=== PATIENT | male | born 1985 | race Caucasian/White ===

== ENCOUNTER 2017-11-18 13:10 | Emergency (ER) | payer OTHER ==
[2017-11-18 13:16] VITALS: BP 126/66
--- NOTE | 2017-11-18 14:31 | RADIOLOGY REPORT (SQ) ---
EXAM DESCRIPTION: FINGER LEFT COMPLETED DATE/TIME: 11/18/2017 2:10 pm REASON FOR STUDY: pain swelling ring finger COMPARISON: None. NUMBER OF VIEWS: Three views. TECHNIQUE: AP, lateral, and oblique images acquired of the left 4th finger. LIMITATIONS: None. FINDINGS: MINERALIZATION: Normal. BONES: No acute fracture or dislocation. No worrisome bone lesions. SOFT TISSUES: Soft tissue swelling prominent at the left 4th PIP joint. OTHER: No other significant finding. IMPRESSION: SOFT TISSUE SWELLING. OTHERWISE, NORMAL LEFT 4TH FINGER. TECHNICAL DOCUMENTATION: JOB ID: [id number] [employer]- All Rights Reserved Reading location - IP/workstation name: [email or web address]
--- NOTE | 2017-11-18 14:31 | ER Document Report ---
ED Hand/Wrist Injury - General Chief Complaint: Finger Injury Stated Complaint: FINGER INJURY Time Seen by Provider: 11/18/17 13:58 Mode of Arrival: Ambulatory Information source: Patient Notes: 31-year-old male presents to ED for complaint of left hand ring finger pain. He states last night he had a night tear and dislocated his left ring finger and was able to put it back but is had swelling and bruising since then. He states he has a history of PTSD and sometimes had has night terrors. TRAVEL OUTSIDE OF THE [place] IN LAST 30 DAYS: No - HPI Injury to: Ring finger Onset: Yesterday Where: Home, Indoors Timing: Still present Quality of pain: Achy, Sharp Severity: Moderate Pain Level: 3 Context: Other - During a night terror last night he states he dislocated his finger - Related Data Allergies/Adverse Reactions: No Known Allergies Allergy (Verified 11/18/17 13:11) Past Medical History - General Information source: Patient - Social History Smoking Status: Never Smoker Cigarette use (# per day): No Chew tobacco use (# tins/day): No Smoking Education Provided: No Frequency of alcohol use: None Drug Abuse: None Family History: Reviewed & Not Pertinent Patient has suicidal ideation: No Patient has homicidal ideation: No - Past Medical History Cardiac Medical History: Reports: None Pulmonary Medical History: Reports: None EENT Medical History: Reports: None Neurological Medical History: Reports: None Endocrine Medical History: Reports: None Renal/ Medical History: Reports: None Malignancy Medical History: Reports None GI Medical History: Reports: None Musculoskeltal Medical History: Reports Hx Musculoskeletal Trauma Skin Medical History: Reports None Psychiatric Medical History: Reports: Hx Post Traumatic Stress Disorder Traumatic Medical History: Reports: Hx Fractures - Multiple digits and ankle Infectious Medical History: Reports: None Past Surgical History: Reports: None - Immunizations Immunizations up to date: Yes Hx Diphtheria, Pertussis, Tetanus Vaccination: Yes Review of Systems - Review of Systems Constitutional: No symptoms reported EENT: No symptoms reported Cardiovascular: No symptoms reported Respiratory: No symptoms reported Gastrointestinal: No symptoms reported Genitourinary: No symptoms reported Male Genitourinary: No symptoms reported Musculoskeletal: Other - Left ring finger pain swelling and bruising Skin: Change in color - Left ring finger Hematologic/Lymphatic: No symptoms reported Neurological/Psychological: No symptoms reported Physical Exam - Vital signs Vitals: Temp Pulse Resp BP Pulse Ox 97.5 F 66 16 126/66 H 96 11/18/17 13:15 11/18/17 13:15 11/18/17 13:15 11/18/17 13:15 11/18/17 13:15 Interpretation: Normal - General General appearance: Appears well, Alert - HEENT Head: Normocephalic, Atraumatic Eyes: Normal Pupils: PERRL - Respiratory Respiratory status: No respiratory distress Chest status: Nontender Breath sounds: Normal Chest palpation: Normal - Cardiovascular Rhythm: Regular Heart sounds: Normal auscultation Murmur: No - Abdominal Inspection: Normal Distension: No distension Bowel sounds: Normal Tenderness: Nontender Organomegaly: No organomegaly - Back Back: Normal, Nontender - Extremities General upper extremity: Normal temperature General lower extremity: Normal inspection, Nontender, Normal color, Normal ROM , Normal temperature, Normal weight bearing. No: Dominic's sign Hand: Tender, Ecchymosis, No evidence of human bite, No evidence of FB, Swelling. No: Abrasion, Deformity, Dislocation, Instability, Laceration, Nail injury, Tendon deficit, Other - Neurological Neuro grossly intact: Yes Cognition: Normal Orientation: AAOx4 Jerrell Coma Scale Eye Opening: Spontaneous Jerrell Coma Scale Verbal: Oriented [place] Coma Scale Motor: Obeys Commands Jerrell Coma Scale Total: 15 Speech: Normal Motor strength normal: LUE, RUE, LLE, RLE Sensory: Normal - Psychological Associated symptoms: Normal affect, Normal mood - Skin Skin Temperature: Warm Skin Moisture: Dry Skin Color: Ecchymosis Location of irregularity: Extremities - Left ring finger pain bruising and swelling Irregularity with: Swelling, Tenderness Course - Re-evaluation Re-evalutation: 11/18/17 16:53 X-ray demonstrated a contusion with swelling and bruising to the left ring finger. No acute akil fractures, deformities, or dislocations noted. - Vital Signs Vital signs: Temp Pulse Resp BP Pulse Ox 97.5 F 66 16 126/66 H 96 11/18/17 13:15 11/18/17 13:15 11/18/17 13:15 11/18/17 13:15 11/18/17 13:15 - Diagnostic Test Radiology reviewed: Image reviewed, Reports reviewed Procedures - Immobilization Left Finger 4th digit Time completed: 15:25 Immobilizer type: Finger splint (Static) Performed by: PCT Post-Proc Neuro Vasc Exam: Normal Alignment checked and good: Yes Discharge - Discharge Clinical Impression: Sprain of left ring finger Qualifiers: Encounter type: initial encounter Sprain of finger site: unspecified site Qualified Code(s): S63.615A - Unspecified sprain of left ring finger, initial encounter Condition: Stable Disposition: HOME, SELF-CARE Additional Instructions: SPRAIN: Your injury is a sprain. A sprain results from stretching or tearing of the ligaments, usually from a twisting injury. The ligaments will require time and protection in order to heal properly. Many sprains are quite disabling and should be taken seriously. The usual initial treatment of sprains is cold packs, elevation, and rest of the injured area. Your physician has assessed the seriousness of your ligament injury, and has outlined a treatment plan. Understand that this treatment may change, depending on how you progress. If a re-examination was recommended, it is important that you follow up as instructed. Call the doctor any time if there is severe pain, numbness, or loss of function in the injured area. SPLINT PRECAUTIONS: A splint has been placed. This will protect the area while healing begins. Your problem does NOT normally require a cast. It MUST, however, be held still! Keep the splint on ALL THE TIME until instructed to remove it by the doctor. As you begin to use the area, be careful. You shouldn't do anything which causes discomfort -- you may disturb the injury even with the splint in place. After the initial period of rest and elevation, if splint does not prevent pain when you move, come back. You may require placement of a different splint , or a cast. If there is unexpected severe pain, or numbness, discoloration, or swelling beyond the splint, you should return at once. If you feel that the splint has broken or become loose, come back. ICE & ELEVATION: Apply ice packs frequently against the painful area. Many different schedules are recommended, such as "20 minutes on, 20 minutes off" or "one hour ice, two hours rest." If you need to work, you may need to go longer between ice treatments. You should plan to have the area ice packed AT LEAST one- fourth of the time. The ice should be applied over the wrap, tape, or splint, or over a layer of cloth -- not directly against the skin. Some ice bags have a built-in cloth and can be put directly on the skin. Your injured part should be elevated as much as possible over the next 48 hours. Try to keep the injury above the level of the heart. Avoid use of the injured area. Elevation and rest will decrease the swelling. USE OF KSJR-MOZ-BOCPESI IBUPROFEN: Ibuprofen (Advil, Nuprin, Medipren, Motrin IB) is a medication for fever and pain control. In addition, it has anti- inflammatory effects which may be beneficial, especially in the treatment of injuries. It's best to take ibuprofen with food. Persons with ulcer disease or allergy to aspirin should notify their physician of this before taking ibuprofen. Ibuprofen can be given every four to six hours, for a total of four doses daily. Age Pain or fever dose Antiinflammatory dose 6-8 yr 200 mg (1 tab) 200 mg (1 tab) 9-11 yr 200 mg (1 tab) 200-400 mg (1-2 tab) 11-14 yr 200-400 mg (1-2 tab) 400 mg (2 tab) 15-adult 400 mg (2 tab) 600 mg (3 tab) FOLLOW-UP CARE: If you have been referred to a physician for follow-up care, call the physician s office for an appointment as you were instructed or within the next two days. If you experience worsening or a significant change in your symptoms, notify the physician immediately or return to the Emergency Department at any time for re-evaluation. Follow[facility] with your [facility] provider and if the pain continues follow-up with orthopedics. Elevation ice and ibuprofen your best treatment at this time. I have ordered a splint for the finger for comfort. There is no definite fractures noted on the x-ray. I have given you the written report of the x-ray at this time. Forms: Elevated Blood Pressure Referrals: LINUS SHARMA MD [Primary Care Provider] - Follow up as needed PATRICIA SARABIA MD [ACTIVE STAFF] - Follow up as needed
== END 2017-11-18 15:32 | disposition home or self-care (01) ==
LOC: ER 13:10
DX: S63.615A Unspecified sprain of left ring finger, initial encounter (principal); M79.645 Pain in left finger(s); X58.XXXA Exposure to other specified factors, initial encounter; F51.4 Sleep terrors [night terrors]; Z87.81 Personal history of (healed) traumatic fracture
CPT/HCPCS: 99283

== ENCOUNTER 2019-06-03 08:01 | Emergency (ER) | payer OTHER ==
--- NOTE | 2019-06-03 08:51 | RADIOLOGY REPORT (SQ) ---
EXAM DESCRIPTION: ELBOW LEFT OVER 2 VIEWS COMPLETED DATE/TIME: 06/03/2019 8:37 am REASON FOR STUDY: bone tenderness COMPARISON: None. NUMBER OF VIEWS: Four views. TECHNIQUE: AP, lateral, and both oblique radiographic images acquired of the left elbow. LIMITATIONS: ARTIFACT FROM AN IV IN THE ANTECUBITAL FOSSA LATERAL FILM SLIGHTLY ROTATED FINDINGS: MINERALIZATION: Normal. BONES: No acute fracture or dislocation. No worrisome bone lesions. JOINT: Small elbow joint effusion with elevation of the anterior fat pad. SOFT TISSUES: No soft tissue swelling. No foreign body. OTHER: No other significant finding. IMPRESSION: Small elbow joint effusion. No acute displaced fracture is identified. If there is continued pain, follow-up four view left elbow films are recommended in 7 to 10 days to e valuate for radiographically occult radial head fracture TECHNICAL DOCUMENTATION: JOB ID: [id number]- All Rights Reserved Reading location - IP/workstation name: [email or web address]
--- NOTE | 2019-06-03 08:53 | RADIOLOGY REPORT (SQ) ---
EXAM DESCRIPTION: HIP LEFT AP/LATERAL COMPLETED DATE/TIME: 06/03/2019 8:37 am REASON FOR STUDY: bone tenderness COMPARISON: None. NUMBER OF VIEWS: Two views. TECHNIQUE: AP pelvis and additional frog-leg view of the left hip. LIMITATIONS: None. FINDINGS: MINERALIZATION: Normal. LEFT HIP: No fracture or dislocation. No worrisome bone lesions. RIGHT HIP: No fracture or dislocation. No worrisome bone lesions. PUBIS AND ISCHIUM: No fracture. PELVIS: No fracture. SACRUM: No fracture or dislocation. No worrisome bone lesions. LOWER LUMBAR SPINE: No fracture or dislocation. No worrisome bone lesions. No significant disc disea se. SOFT TISSUES: No findings. OTHER: No other significant finding. IMPRESSION: NEGATIVE STUDY OF THE LEFT HIP AND PELVIS. NO RADIOGRAPHIC EVIDENCE OF ACUTE INJURY. TECHNICAL DOCUMENTATION: JOB ID: [id number] [employer]- All Rights Reserved Reading location - IP/workstation name: [email or web address]
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
[2019-06-03] MEDS ORDERED: CYCLOBENZAPRINE HCL 10 MG TABLET PO ONE (09:16)
[2019-06-03] MEDS ORDERED: KETOROLAC TROMETHAMINE INJ/PF 30 MG/1 ML SDV IV ONE (09:16)
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
[2019-06-03 10:06] VITALS: BP 123/76
== END 2019-06-03 10:04 | disposition home or self-care (01) ==
LOC: ER 08:01
DX: M25.522 Pain in left elbow (principal); M25.552 Pain in left hip; M25.562 Pain in left knee; M25.462 Effusion, left knee; V49.40XA Driver injured in collision with unspecified motor vehicles in traffic accident, initial encounter; F43.10 Post-traumatic stress disorder, unspecified; Z79.899 Other long term (current) drug therapy
CPT/HCPCS: 99283; 96374; 73080; 73502; 73564; J1885

== ENCOUNTER 2019-06-11 13:03 | Emergency (ER) | payer OTHER ==
[2019-06-11 13:16] VITALS: BP 143/87
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
--- NOTE | 2019-06-11 14:09 | RADIOLOGY REPORT (SQ) ---
EXAM DESCRIPTION: ELBOW LEFT OVER 2 VIEWS COMPLETED DATE/TIME: 06/11/2019 1:57 pm REASON FOR STUDY: Reassess for occult fracture COMPARISON: None. NUMBER OF VIEWS: Four views. TECHNIQUE: AP, lateral, and both oblique radiographic images acquired of the left elbow. LIMITATIONS: None. FINDINGS: MINERALIZATION: Normal. BONES: No acute fracture or dislocation. No worrisome bone lesions. JOINT: No effusion. SOFT TISSUES: No soft tissue swelling. No foreign body. OTHER: No other significant finding. IMPRESSION: NEGATIVE STUDY OF THE LEFT ELBOW. NO RADIOGRAPHIC EVIDENCE OF ACUTE INJURY. TECHNICAL DOCUMENTATION: JOB ID: [id number] [employer]- All Rights Reserved Reading location - IP/workstation name: [email or web address]
== END 2019-06-11 14:30 | disposition home or self-care (01) ==
LOC: ER 13:03
DX: F07.81 Postconcussional syndrome (principal); M25.522 Pain in left elbow; V89.2XXA Person injured in unspecified motor-vehicle accident, traffic, initial encounter
CPT/HCPCS: 99283

== ENCOUNTER 2019-12-25 21:13 | Emergency (ER) | payer OTHER ==
[2019-12-25 21:21] VITALS: BP 126/67
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
[2019-12-25] MEDS ORDERED: DIPH/PERTUSS(ACELL)/TETANUS VAC/PF 0.5 ML SYR (>=10YO) IM ONE (21:40)
== END 2019-12-25 21:50 | disposition home or self-care (01) ==
LOC: ER 21:13
DX: S01.111A Laceration without foreign body of right eyelid and periocular area, initial encounter (principal); W50.0XXA Accidental hit or strike by another person, initial encounter; Y93.75 Activity, martial arts; Z23 Encounter for immunization
CPT/HCPCS: 90471; 90715; 99282